=== PATIENT | female | born 2000 | race Caucasian/White ===

== ENCOUNTER 2022-04-12 13:03 | Outpatient (CLI) | payer OTHER, SELFPAY ==
--- NOTE | 2022-04-12 13:00 | CRLHL7_ITS ---
For Patients: As a result of the Century Cures Act, medical imaging exams and procedure reports are released immediately into your electronic medical record. You may view this report before your referring provider. If you have questions, please contact your health care provider. Indication: CHRONIC Sinusitis Technique: Performed without IV contrast Comparison: 06/13/2021 Findings: Frontal sinuses: Right frontal sinus clear. 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 Ethmoid sinuses: Clear. Maxillary sinuses: Mucosal thickening and fluid within the left maxillary sinus. Clear right maxillary sinus. The maxillary sinus drainage pathways are occluded on the left and patent on the right. Sphenoid sinuses: Tiny mucous retention cysts are present bilaterally. Patent sphenoethmoidal recesses. Nasal Cavity: Rightward curvature of the nasal septum. No TMJ abnormalities identified. The visualized portions of the orbits, intracranial contents and upper soft tissue neck are grossly negative. Impression: 1. Moderate left maxillary sinus disease with obstruction of the left maxillary sinus drainage pathways. 2. Tiny mucous retention cysts within the sphenoid sinuses. 3. Improved appearance of the remaining sinuses compared to the prior exam. Please note that all CT scans at this facility use dose modulation, iterative reconstruction, and/or weight-based dosing when appropriate to reduce radiation dose to as low as reasonably achievable. Dictated by Abel Chaudhari MD @ 04/12/2022 1:43:58 PM (Electronically Signed)
== END 2022-04-12 13:04 | disposition home or self-care (01) ==
LOC: CT 13:03
PROVIDERS: PCP Physician Assistant Medical; Visit Provider Otolaryngology
DX: J32.9 Chronic sinusitis, unspecified (principal); J32.0 Chronic maxillary sinusitis; J34.1 Cyst and mucocele of nose and nasal sinus
CPT/HCPCS: 70486

== ENCOUNTER 2022-07-19 09:34 | Day surgery (SDC) | payer OTHER, SELFPAY ==
[2022-07-19] VITALS (11 sets, daily range): BP systolic 118–138; BP diastolic 74–86; PULSE 66–109; RESP 14–16; TEMP 36.4–36.7; O2SAT 95–100; BMI 37.8
[2022-07-19] MEDS: OXYMETAZOLINE 0.05% NASAL SPRAY 2 SPRAY NOSTRIL-B (10:00)
[2022-07-19] MEDS: LACTATED RINGERS 1000 ML 1,000 ML 100 ML IV (10:00)
[2022-07-19] MEDS: SODIUM CHLORIDE 0.9 % (FLUSH) 10 ML SYRINGE IVF (10:00)
[2022-07-19 10:04] LABS: Ur HCG Qualitative* Negative (Negative)
--- NOTE | 2022-07-19 10:09 | W.ANESCHARGE ---
Anesthesia Charges Start Date/Time Anesthesia Start Date: 07/19/22 Anesthesia Start Time: 10:58 Stop Date/Time Anesthesia Stop Date: 07/19/22 Anesthesia Stop Time: 11:33 Summary Emergency: No
--- NOTE | 2022-07-19 10:15 | SUR.PREOP ---
HOME COVID TEST NEGATIVE.
[2022-07-19] MEDS: COCAINE HCL 4 % 4 ML SOLUTION NOSTRIL-B (11:09)
[2022-07-19] MEDS: BUPIVACAINE 0.5 %/EPI 1:200K 30 ML INJECTION (11:15)
[2022-07-19] MEDS: MUPIROCIN OINTMENT 22 GM 1 APPLIC TOPICAL (11:20)
[2022-07-19] MEDS: AYR SALINE NASAL GEL 1 APPLIC NOSTRIL-B (11:20)
--- NOTE | 2022-07-19 11:37 | W.ANESCHARGE ---
Anesthesia Charges Start Date/Time Anesthesia Start Date: 07/19/22 Anesthesia Start Time: 10:58 Stop Date/Time Anesthesia Stop Date: 07/19/22 Anesthesia Stop Time: 11:33 Summary Emergency: No
--- NOTE | 2022-07-19 12:02 | W.PM.ENTPROC ---
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 The inferior turbinates were outfractured. A stab incision was made in the anterior of the right inferior turbinate a tunnel created with a Jamie dissector. A conservative anterior submucous resection was performed. Hemostasis was achieved with the Coblation Wand and that was also used to cauterize intramural ER along r the along the inferior 10%. This was repeated on the opposite side in identical fashion. Remainder procedure was done with the available assistance of a 0 degree endoscope. The right middle turbinate quiana bullosa was incised along its lateral aspect. The posterior bone was infractured and the posterior aspect of the turbinate was crushed with the Guillermo forceps. The anterior portion was already narrowed. This was repeated on the left side in identical fashion. Merocel pack was trimmed lengthwise coated in Bactroban and placed in the middle meatus on each side. The patient tolerated the procedure well and was taken to recovery in satisfactory condition. Blood loss less than 25 mL. Complications 0 Surgeon: Rich Pagan MD
--- NOTE | 2022-07-19 12:06 | SUR.PHASEI ---
patient met discharge criteria per anesthesia
== END 2022-07-19 12:55 | disposition home or self-care (01) ==
PROVIDERS: Anesthesiology; PCP Physician Assistant Medical; Visit Provider Otolaryngology
PROC: 09SL4ZZ Reposition Nasal Turbinate, Percutaneous Endoscopic Approach (ICD-10-PCS; CPT 30999; principal; 2022-07-19 10:45)
DX: J34.3 Hypertrophy of nasal turbinates (principal); R51.9 Headache, unspecified; J34.89 Other specified disorders of nose and nasal sinuses
CPT/HCPCS: 31240; 30140; 00160; 81025; A9270; J0330; J1100; J2250; J2405; J2704; J3010; J3490; J7120